=== PATIENT | female | born 1990 | race Caucasian/White ===

== ENCOUNTER 2023-02-20 09:17 | Emergency (ER) | payer BC ==
[2023-02-20 10:43] LABS: BASOPHILS ABSOLUTE AUTO 0.04 K/uL (0.00-0.20); BASOPHILS PERCENT AUTO 0.4 % (0.0-1.0); EOSINOPHILS ABSOLUTE AUTO 0.18 K/uL (0.00-0.45); EOSINOPHILS PERCENT AUTO 1.8 % (0.0-6.0); HEMATOCRIT 38.3 % (37.0-47.0); HEMOGLOBIN 13.2 g/dL (12.0-16.0); IMMATURE GRAN ABSOLUTE AUTO 0.02 K/uL (0.00-0.05); IMMATURE GRAN PERCENT AUTO 0.2 % (0.0-0.4); LYMPHOCYTES ABSOLUTE AUTO 2.63 K/uL (1.00-4.80); LYMPHOCYTES PERCENT AUTO 26.9 % (24.0-44.0); MEAN CORPUSCULAR HEMOGLOBIN 30.6 pg (28.0-32.0); MEAN CORPUSCULAR HGB CONC 34.5 g/dL (32.0-36.0); MEAN CORPUSCULAR VOLUME 88.7 fL (83.0-99.0); MEAN PLATELET VOLUME 10.2 fL (9.4-12.3); MONOCYTES ABSOLUTE AUTO 0.57 K/uL (0.00-0.80); MONOCYTES PERCENT AUTO 5.8 % (0.0-8.0); NEUTROPHILS ABSOLUTE AUTO 6.33 K/uL (1.80-7.70); NEUTROPHILS PERCENT AUTO 64.9 % (41.0-71.0); PLATELET COUNT,PLT 309 K/uL (150-400); RED BLOOD CELL COUNT 4.32 M/uL (4.10-5.30); WHITE BLOOD CELL COUNT,WBC 9.77 K/uL (3.9-11.3)
[2023-02-20 11:07] LABS: A/G RATIO 1.4 (0.9-1.6); ALBUMIN 4.1 g/dL (3.4-5.0); BILIRUBIN TOTAL 0.4 mg/dL (0.2-1.0); CALCIUM 8.9 mg/dL (8.5-10.1); CREATININE 0.8 mg/dL (0.6-1.0); EST CRCL DRUG DOSING (CG) 85.06 mL/min
[2023-02-20 11:16] LABS: BILIRUBIN,URINE NEGATIVE (NEGATIVE); COLOR,URINE YELLOW; GLUCOSE,URINE NEGATIVE (NEGATIVE); KETONES,URINE NEGATIVE (NEGATIVE); LEUKOCYTE ESTERASE,URINE NEGATIVE (NEGATIVE); NITRITE,URINE NEGATIVE (NEGATIVE); OCCULT BLOOD,URINE LARGE (NEGATIVE); PH,URINE 5.5 (5.0-8.0); PROTEIN,URINE NEGATIVE (NEGATIVE); UROBILINOGEN,URINE 0.2 EU/dL (<2.0)
[2023-02-20 11:21] LABS: APPEARANCE,URINE HAZY
[2023-02-20 11:22] LABS: BACTERIA,URINE 1+ (NEGATIVE); MUCUS,URINE LIGHT (NONE-MOD); SQUAMOUS EPITHELIAL CELLS,UR MODERATE; WBC,URINE 0-2 (0-5/HPF)
== END 2023-02-20 13:00 | disposition home or self-care (01) ==
LOC: MW.ED 09:17
DX: O20.0 Threatened abortion (principal); Z3A.10 10 weeks gestation of pregnancy
CPT/HCPCS: 36415; 76817; 76817-26; 80053; 81001; 81025; 84702; 85025; 86900; 86901; 87086; 99282; 99284

== ENCOUNTER 2024-01-01 10:48 | Inpatient (IN) | payer BC, MEDICAID ==
[2024-01-01] MEDS ORDERED: Carboprost Tromethamine 250 MCG/1 mL Vial IM PRN (11:00)
[2024-01-01] MEDS ORDERED: Lidocaine 1% 50 ML MDV INJECT PRN (11:00)
[2024-01-01] MEDS ORDERED: Sodium Chloride 0.9% 20 ML SDV IV PRN (11:00)
[2024-01-01] MEDS ORDERED: Ondansetron 4 MG/2 ML SDV IVPUSH PRN (11:00)
[2024-01-01] MEDS ORDERED: Sodium Chloride 0.9% 10 ML Syringe FLUSH PRN (11:00)
[2024-01-01] MEDS ORDERED: Misoprostol 200 MCG Tab PO PRN (11:00)
[2024-01-01] MEDS ORDERED: Tranexamic Acid IN NACL,ISO-OS 1,000 MG in Premix Bag 1 BAG IV PRN (11:00)
[2024-01-01] MEDS ORDERED: Water For Irrigation,Sterile 1,000 ML Container IRR PRN (11:00)
[2024-01-01] MEDS ORDERED: Nalbuphine 10 MG/1 ML Vial IVPUSH PRN (11:00)
[2024-01-01] MEDS ORDERED: Sodium Chloride 0.9% 2.5 ML Syringe FLUSH PRN (11:00)
[2024-01-01] MEDS ORDERED: Butorphanol 2 MG/ML SDV IVPUSH PRN (11:00)
[2024-01-01] MEDS: Lactated Ringers 1,000 ML IV SCH (11:18)
[2024-01-01] MEDS ORDERED: Ropivacaine HCl/PF 200 ML ONE (11:33)
[2024-01-01 11:45] LABS: HEMATOCRIT 40.4 % (37.0-47.0); HEMOGLOBIN 14.1 g/dL (12.0-16.0); MEAN CORPUSCULAR HEMOGLOBIN 30.5 pg (28.0-32.0); MEAN CORPUSCULAR HGB CONC 34.9 g/dL (32.0-36.0); MEAN CORPUSCULAR VOLUME 87.4 fL (83.0-99.0); MEAN PLATELET VOLUME 10.9 fL (9.4-12.3); PLATELET COUNT,PLT 247 K/uL (150-400); RED BLOOD CELL COUNT 4.62 M/uL (4.10-5.30); WHITE BLOOD CELL COUNT,WBC 27.75 K/uL (3.9-11.3)
[2024-01-01] MEDS: Ropivacaine HCl/PF 400 MG in Premix Bag 1 BAG EPIDUR SCH (11:52)
[2024-01-01] MEDS ORDERED: ePHEDrine 50 MG/ML SDV IVPUSH PRN (11:56)
[2024-01-01] MEDS ORDERED: Phenylephrine HCl In 0.9% NaCl 1 MG/10 ML Syringe IVPUSH PRN (11:56)
[2024-01-01] MEDS ORDERED: Bupivacaine 0.5% 10 ML SDV INJECT ONE (11:57)
[2024-01-01] MEDS ORDERED: ePHEDrine 50 MG/ML SDV IM PRN (11:57)
[2024-01-01] MEDS ORDERED: dexmedeTOMIDine HCl 200 MCG/2 ML SDV EPIDUR SCH (12:00)
[2024-01-01] MEDS: Oxytocin/0.9 % Sodium Chloride 30 UNIT/500 ML BAG IV SCH (15:20)
[2024-01-01] MEDS: Methylergonovine 0.2 MG/1 ML Amp IM PRN (15:36)
[2024-01-01] MEDS ORDERED: Acetaminophen 500 MG Tab PO PRN (16:52)
[2024-01-01] MEDS ORDERED: Docusate Sodium 100 MG Cap PO PRN (16:52)
[2024-01-01] MEDS ORDERED: Ibuprofen 800 MG Tab PO PRN (16:52)
[2024-01-01] MEDS: Phenylephrine HCl In 0.9% NaCl 1 MG/10 ML Syringe ONE (19:43)
[2024-01-01] MEDS: Bupivacaine 0.5% 10 ML SDV ONE (19:44)
[2024-01-02 06:58] LABS: HEMATOCRIT 35.5 % (37.0-47.0); HEMOGLOBIN 12.3 g/dL (12.0-16.0)
[2024-01-02] MEDS: Lanolin 100% Cream 7 GM Tube TOP PRN (10:33)
[2024-01-02] MEDS: Benzocaine/Menthol 20%-0.5% Spray 78 GM Cannister TOP PRN (10:34)
[2024-01-02] MEDS: Witch Hazel Medicated Pads 40/Jar TOP PRN (10:34)
== END 2024-01-02 19:45 | disposition home or self-care (01) | DRG 807 ==
LOC: MW.OBCHECK 10:48 → MW.OB 10:50 → MW.OBCHECK 11:11 → OBSVTOIN 16:52 → MW.OB 21:35
PROVIDERS: ADMIT Obstetrics & Gynecology; ATTEND Obstetrics & Gynecology
PROC: 10E0XZZ Delivery of Products of Conception, External Approach (ICD-10-PCS; principal; 2024-01-01)
DX: O77.0 Labor and delivery complicated by meconium in amniotic fluid (principal); Z37.0 Single live birth; Z3A.39 39 weeks gestation of pregnancy
CPT/HCPCS: 36415; 51702; 59025; 59409; 85014; 85018; 85027; 86592; 86850; 86900; 86901; A9270-GY; J0665; J2210; J2371; J2590; J2795; J7120